=== PATIENT | male | born 1945 | race Caucasian/White ===

== ENCOUNTER 2016-10-28 23:12 | Inpatient (IN) ==
--- NOTE | 2016-10-29 02:02 | Internal Med History&Physical ---
Date of Encounter: 10/29/16 Time of Encounter: 03:00 Assessment and Plan (1) Hyperkalemia Current visit: Yes Status: Acute Patient is known to have ESRD and is on hemodialysis. Patient had serum potassium of 7.5 and was given Kayexalate, calcium gluconate, sodium bicarbonate at [facility]. Stat repeat serum potassium after his arrival was 6.9. We have given him calcium gluconate, sodium bicarbonate 100 meq, on Kayexalate. I discussed with director medical radiation control health physicist Dr Coelho, for urgent HD (2) Acute respiratory failure with hypoxia Current visit: Yes Status: Acute This could be secondary to pulmonary edema, as reported in the chest x-ray at [facility]. He was apparently told that he had pneumonia, in [facility]. But CXR done in this hospital did not report any pneumonia. Pt has leucocytosis - will consider CT chest. Pt has significantly elevated D-dime -- consider CT Angio chest, if OK with the director medical -- otherwise V/Q scan to exclude pulmonary embolism-- I have signed out the day team. (3) Leucocytosis Current visit: Yes Status: Acute CXR is negative. UA was abnormal - But pt was given antibiotics, prior to arrival here. consider ceftriaxone for possible UTI. Blood cultures were done in [facility] Qualifiers: Leukocytosis type: unspecified Qualified Code(s): D72.829 - Elevated white blood cell count, unspecified (4) CKD (chronic kidney disease) stage 5, GFR less than 15 ml/min Current visit: No Status: Chronic On HD Sat/sat/sat (5) Diabetes mellitus Current visit: No Status: Acute start sliding scale insulin Qualifiers: Diabetes mellitus type: type 2 Diabetes mellitus complication status: with kidney complications Diabetes mellitus complication detail: with nephropathy Diabetes mellitus assisted insulin use: without assisted use Qualified Code(s): E11.21 - Type 2 diabetes mellitus with diabetic nephropathy (6) Hypothyroidism Current visit: Yes Status: Chronic Continue Synthroid Qualifiers: Hypothyroidism type: unspecified Qualified Code(s): E03.9 - Hypothyroidism , unspecified (7) Hypertension Current visit: No Status: Chronic Continue home medications Qualifiers: Hypertension type: essential hypertension Qualified Code(s): I10 - Essential (primary) hypertension (8) D-dimer, elevated Current visit: Yes Status: Acute consider CT Angio chest, if OK with the director medical -- otherwise V/Q scan to exclude pulmonary embolism (9) Atelectasis of left lung Current visit: Yes Status: Acute Start incentive spirometer (10) Pleural effusion Current visit: Yes Status: Chronic Possibly chronic (11) UTI (urinary tract infection) Current visit: Yes Status: Acute UA was abnormal in [facility]. Antibiotics were given in [facility], prior to transfer Qualifiers: Urinary tract infection type: site unspecified Hematuria presence: without hematuria Qualified Code(s): N39.0 - Urinary tract infection, site not specified (12) DVT prophylaxis Current visit: Yes Status: Acute Heparin Internal Medicine - H&P: HPI Chief complaint: " I have pneumonia" Admitted From: Hospital to Hospital Transfer Plans for Post Hospital Care: Home History of present illness: Mr. Delong is a 71 year old male admitted to [facility] as a hospital to hospital transfer from [facility] in [place]. Pt has h/o ESRD on HD, COPD, diabetes, GERD, hyperlipidemia, hypertension, hypothyroidism, anxiety, depression, PTSD. Patient is not able to give clinical details well. He reports shortness of breath, which is worsening; cough with no significant expectoration, subjective fevers and chills. He denies chest pain. Denies urinary or bowel symptoms. He was evaluated in the [facility] in [place]. Patient was noted to have hyperkalemia with potassium of 7.5 and was given dextrose insulin, calcium gluconate, Kayexalate, Lasix. He was suspected to have pneumonia and was given ceftriaxone. He is transferred to [facility], per patient's request. I reviewed the labs from [facility]: WBC: 19.4; hemoglobin 13.4; hematocrit 39.7; platelets 204; serum sodium 136, potassium 7.5, BUN 55, creatinine 8.7, d-dimer 2046, INR 0.91, troponin 0.07, lactic acid 2.7, proBNP 5162. Past Med Surg Social Fam HX - Past Medical History Medical history: arthritis, COPD, diabetes, GERD, hyperlipidemia, hypertension, renal disease Psychiatric history: anxiety, depression, PTSD - Past Surgical History Surgical History: cancer surgery - Social History Smoking Status: Current every day smoker Packs per day: ONE Smokeless Tobacco Status: No Alcohol use: none Drug use: none - Family History Mother Living Status: Hx Family Cancer: Yes (breast) Father Adopted: [place]: TAYLOR Age: 65 Family Member Ethnicity: Non- Living Status: Age at : 65 Cause of : HEART ATTACK Hx Family Cardiac Disorders: Yes Hx Family Respiratory Disorders: No Hx Family Cancer: Yes Hx Family GI Disorders: No Hx Family Genitourinary Disorders: No Hx Family Endocrine Disorder: Yes Hx Family Musculoskeletal Disorders: No Hx Family Neuromuscular Disorders: No Hx Family Neurologic Disorders: No Hx Family HEENT Disorders: No Hx Family Autoimmune Disorders: No Hx Family Reproductive Disorders: No Hx Family Psychosocial Disorders: No Hx Family Medical Disorders: No Internal Medicine - H&P: Meds Acetaminophen [Tylenol] 650 mg PO QID 08/12/15 [History] Albuterol Sulfate [Albuterol Inhaler] 90 mcg IH Q4HR PRN 08/12/15 [History] Ammonium Lactate 1 appl TP DAILY 08/12/15 [History] Aspirin Enteric Coated [Aspirin EC] 81 mg PO DAILY 08/12/15 [History] Atorvastatin Calcium [Lipitor] 80 mg PO DAILY 08/12/15 [History] Bisacodyl [Dulcolax] 10 mg PO BID PRN 08/12/15 [History] ClonazePAM [Klonopin] 1 mg PO TID 08/12/15 [History] Desipramine [Norpramine] 50 mg PO BID 08/12/15 [History] Docusate [Colace] 100 mg PO BID PRN 08/12/15 [History] FluocinoNIDE 0.05% CRM [Lidex] 1 appl TP BID 08/12/15 [History] Fluticasone Propionate Nasal [Flonase] 1 spray NS BID 08/12/15 [History] Guaifenesin 400 mg PO TID 08/12/15 [History] HYDROcodone/Acet 5/325 mg [Pillager 5-325 mg] 5 - 325 mg PO QID PRN 08/12/15 [ History] Hydralazine HCl 20 mg PO TID 08/12/15 [History] Hydrocortisone [Proctosol-Hc] 2.5 appl RC DAILY 08/12/15 [History] Ketoconazole 2% CRM [Nizoral Cream] 1 appl TP DAILY 08/12/15 [History] Ketoconazole Shampoo [Nizoral Shampoo] 2 ml TP DAILY 08/12/15 [History] Levothyroxine Sodium [Synthroid] 100 mcg PO DAILY 08/12/15 [History] Loratadine [Claritin] 10 mg PO DAILY 08/12/15 [History] Metoprolol Succinate/Hctz [Dutoprol 25-12.5 mg Tablet] 75 mg PO DAILY 08/12/15 [ History] NIFEdipine [Afeditab Cr] 60 mg PO QPM 08/12/15 [History] Quetiapine Fumarate [Seroquel] 400 mg PO HS 08/12/15 [History] Sertraline HCl [Zoloft] 100 mg PO BID 08/12/15 [History] Terazosin [Hytrin] 4 mg PO HS 08/12/15 [History] Calcium Acetate [Phos-LO] 1,334 mg PO TIDWM #90 capsule 08/17/15 [Rx] CloNIDine HCl 0.1 mg PO BID #60 tablet 08/17/15 [Rx] Insulin Glargine [Lantus] 0 unit SQ PRN 09/27/15 [History] Clindamycin [Cleocin] 600 mg PO Q8HR #30 capsule 05/23/16 [Rx] Allergies Influenza Virus Vaccines Adverse Reaction (Verified 08/12/15 21:11) Rash Pneumococcal Vaccine Adverse Reaction (Verified 08/12/15 21:11) Rash Tetanus Vaccines and Toxoid [Tetanus Vaccines & Toxoid] Adverse Reaction ( Verified 08/12/15 21:11) Rash All Systems PM: A 10-system review of systems was performed and is negative for pertinent findings except as documented above in the HPI. - Constitutional Vitals: Temp Pulse Resp BP Pulse Ox 99.3 F 110 28 142/75 93 L 10/29/16 00:50 10/29/16 01:15 10/29/16 00:50 10/29/16 00:50 10/29/16 00:50 Exam: General: Not in acute distress at the time of my evaluation HEENT: Oral mucosa is moist. Neck: No obvious neck swellings Lungs: Bilateral basal crackles Cardiac: Regular rate and rhythm. No significant murmurs Abdomen: Soft, non tender. Bowel sounds present Genitourinary: Maxwell catheter present Neurological: Alert and oriented. No gross localizing deficits Psych: Not aggressive or agitated Extremities: leg edema present Skin: No generalized rash Internal Med - H&P Results - Labs CBC & Chem 7: 10/29/16 07:57 10/29/16 04:50 Labs: Laboratory Tests 10/29/16 10/29/16 10/29/16 01:01 02:03 04:50 Sodium 135 L Potassium 6.9 H* 6.9 H* Chloride 96 L Carbon Dioxide 21 BUN 58 H Creatinine 8.79 H Est GFR ( Amer) 7 L Est GFR (Non-Af Amer) 6 L BUN/Creatinine Ratio 7 Glucose 165 H POC Glucose 148 H Calculated Osmolality 300 Calcium 9.0 I reviewed the labs from [facility]: WBC: 19.4; hemoglobin 13.4; hematocrit 39.7; platelets 204; serum sodium 136, potassium 7.5, BUN 55, creatinine 8.7, d-dimer 2046, INR 0.91, troponin 0.07, lactic acid 2.7, proBNP 5162. - EKG Data EKG comments: Personally Reviewed the EKG from [facility] - sinus rhythm, no acute ST-T changes. 10/29/16 07:35
[2016-10-29 02:25] LABS: Potassium 6.9 mEq/L (3.5-4.5)
[2016-10-29] MEDS ORDERED: Calcium Gluconate 1,000 MG in D5% in Water 100 ML IVPB ONE (02:29)
[2016-10-29] MEDS ORDERED: Acetaminophen 325 MG TABLET PO PRN (03:03)
[2016-10-29] MEDS ORDERED: Naloxone 0.4 MG/ML INJ IVP PRN (03:03)
[2016-10-29] MEDS ORDERED: 0.9 % Sodium Chloride 250 ML IV PRN (04:43)
[2016-10-29] MEDS ORDERED: 0.9 % Sodium Chloride 1,000 ML PRIME SCH (04:45)
[2016-10-29] MEDS ORDERED: Lactulose Oral Soln 20 GM/30 ML UDC PO ONE (06:38)
[2016-10-29] MEDS ORDERED: *HR* Dextrose 50 % in Water (Syg) 50 ML SYRINGE IVP PRN (07:00)
[2016-10-29] MEDS ORDERED: D5% in Water 1,000 ML IV PRN (07:00)
[2016-10-29] MEDS ORDERED: Dextrose Gel 15 GM PO PRN ×2 (07:00)
[2016-10-29 08:09] LABS: Prothrombin Time 11.2 Seconds (9.4-12.1)
[2016-10-29] MEDS: Insulin LISPRO 300 UNITS/3 ML VIAL SQ SCH ×3 (08:10→16:43)
[2016-10-29 08:28] LABS: Basophils % 0.1 %; Hematocrit 38.5 % (37.5-50.1); Hemoglobin 12.5 g/dL (12.9-16.9); Immature Granulocytes % 1.2 % (0-4); Lymphocytes % 4.4 %; Mean Corpuscular HGB Conc 32.5 g/dL (31.6-35.5); Mean Corpuscular Hemoglobin 30.5 pg (28.0-33.3); Mean Corpuscular Volume 93.9 fL (83.0-100.0); Mean Platelet Volume 9.4 fL (9.4-12.4); Monocytes # 0.7 K/mcL (0.0-1.3); Monocytes % 3.1 %; Neutrophils # 20.2 K/mcL (1.6-8.9); Platelet Count 206 K/mcL (140-400); Segmented Neutrophils % 91.2 %
[2016-10-29 09:24] LABS: Hepatitis B Surface Antibody 0.34 mIU/mL; Hepatitis B Surface Antigen Nonreactive (Nonreactive)
[2016-10-29] MEDS ORDERED: Heparin 1,000 UNITS/500 mL NS 500 ML ONE (11:14)
[2016-10-29] MEDS ORDERED: 0.9 % Sodium Chloride 500 ML ONE (11:15)
[2016-10-29] MEDS ORDERED: *HR* Midazolam HCl 2 MG/2 ML VIAL IV PRN (12:20)
[2016-10-29] MEDS ORDERED: *HR* FentaNYL (PF) 100 MCG/2 ML VIAL IV PRN (12:20)
--- NOTE | 2016-10-29 12:20 | Pre-Sedation Evaluation ---
Pre-sedation evaluation - Pre-sedation checklist Date of procedure: 10/29/16 Procedure: fistulogram Recent Vitals: Last Vital Signs Temp 98.1 F 10/29/16 11:03 Pulse 103 10/29/16 11:55 Resp 20 10/29/16 11:03 BP 161/85 10/29/16 11:03 Pulse Ox 98 10/29/16 11:18 H&P (including ROS) documented in medical record: Yes Previous reaction to sedatives/anesthetics: No Dietary Status: NPO after Midnight Airway Assessment: Patient can open mouth completely, TMJ function normal, Micrognathia (under-bite, receding chin) absent, Neck with adequate range of motion Dentition: dentures removed ASA Classification *see protocol: CLASS II-Mild systemic disease Plan of Care: Pt appropriate candidate for procedure/moderate/conscious sedation , Risks/benefits of procedure/sedation discussed w/ patient/family, If not NPO; Risk of intake outweiged by necessity to perform procedure
--- NOTE | 2016-10-29 12:27 | Internal Med Progress Note ---
Date of Encounter: 10/29/16 Time of Encounter: 10:00 - Assessment and plan (1) Cellulitis of lower limb Current Visit: Yes Status: Acute Assessment and plan: Changed antibiotic to Zosyn and vancomycin, if venous Doppler lower extremities negative order compression stockings lower extremities. MRSA screening Qualifiers: Laterality: left Qualified Code(s): L03.116 - Cellulitis of left lower limb (2) Community acquired pneumonia Current Visit: Yes Status: Acute Assessment and plan: Patient had cellulitis in addition to pneumonia with his being on dialysis possible healthcare associated pneumonia will start patient on vancomycin and Zosyn Check sputum culture (3) D-dimer, elevated Current Visit: Yes Status: Acute Assessment and plan: Patient had bilateral calf tenderness and pain will check venous Doppler lower extremities continue DVT prophylaxis (4) Hyperkalemia Current Visit: Yes Status: Acute Assessment and plan: Patient received multiple doses of Kayexalate and bicarbonate D50 and insulin. Staff mentions patient had multiple bowel movement. Failed dialysisthrough his fistula, He is going to have fistulogram soon - Subjective Interval history: Patient is complaining of productive cough with loya phlegm for last 2 days associated with shortness of breath. Patient denies any chest pain. Patient complain of bilateral lower extremity pain and swelling for last 3 days. - Constitutional Vitals: Temp Pulse Resp BP Pulse Ox 98.1 F 103 20 161/85 98 10/29/16 11:03 10/29/16 11:55 10/29/16 11:03 10/29/16 11:03 10/29/16 11:18 General appearance: Present: A&O X 3, pleasant, no acute distress - Head Head exam: Present: atraumatic, normocephalic - Neck Neck exam general surgery: Present: supple, trachea midline. Absent: lymphadenopathy - Respiratory Respiratory exam: Present: decreased breath sounds, prolonged expiratory phase, rales. Absent: accessory muscle use, rhonchi, wheezes - Cardiovascular Cardiovascular exam: Present: RRR, +S1, +S2. Absent: diastolic murmur, gallop, rubs, systolic murmur - GI/Abdominal GI/Abdominal exam: Present: normal bowel sounds, soft, no peritoneal signs. Absent: distended, tenderness - Extremities Exam Extremities exam: Present: calf tenderness (Bilateral calf tenderness), pedal edema (+2 pitting edema bilateral), warm. Absent: cyanotic - Neurological Exam Neurological exam: Present: CN II-XII intact, oriented X3, no focal deficits. Absent: pronater drift, facial droop, speech deficit - Skin Skin exam: Present: dry (Erythema and warm skin left lower extremity ), intact Internal Medicine: Result - Labs CBC & Chem 7: 10/29/16 07:57 10/29/16 07:57 Labs: Short CBC 10/29/16 Range/Units 07:57 WBC 22.1 H (4.3-11.1) K/mcL Hgb 12.5 L (12.9-16.9) g/dL Hct 38.5 (37.5-50.1) % Plt Count 206 (140-400) K/mcL Neutrophils # 20.2 H (1.6-8.9) K/mcL BMP 10/29/16 10/29/16 10/29/16 02:03 04:50 07:57 Sodium 135 L Potassium 6.9 H* 6.9 H* 6.0 H Chloride 96 L Carbon Dioxide 21 BUN 58 H Creatinine 8.79 H Glucose 165 H Calcium 9.0 - ABG Interpretation ABG results: PT/INR, D-dimer PT 11.2 Seconds (9.4-12.1) 10/29/16 07:57 - Impressions Impressions Chest X-Ray 10/29/16 03:11 IMPRESSION: Pulmonary venous congestion with suggestion of mild interstitial edema. Chronic or less likely recurrent left pleural effusion. Adjacent left basilar airspace disease most likely due to compressive atelectasis. D/ / Ketan Camilo MD / Ketan Camilo MD Interpreting Provider: Ketan Camilo MD Consult Discharge Plan - Plan [facility]errals[facility]Primary Care Provider[facility] - (THIS PATIENT IS A HOME BASE [facility], WHICH THE [facility] COMES TO THE PATIENTS HOUSE AND SEES HIM.)
[2016-10-29] MEDS ORDERED: Vancomycin 1,500 MG in D5% in Water 250 ML IVPB ONE ×2 (13:00→19:00)
--- NOTE | 2016-10-29 14:03 | IR Procedure Note ---
Date of procedure: 10/29/16 Consent Obtained: Verbal consent, Written consent Timeout: Correct patient and procedure verified, Correct site verified, Time out performed, Skin prep completed Local anesthetic: Lidocaine 1% Indications: difficulty cannulating fistula Procedure Performed: fistulogram Site/Technique: L arm Results/Findings: no stenosis Estimated blood loss (cc): 1 Complications: None; Tolerated procedure well Post Procedure Treatment Plan: bedrest x 1 hour
[2016-10-29] MEDS ORDERED: 0.9 % Sodium Chloride 2,000 ML ONE (15:37)
[2016-10-29] MEDS ORDERED: *HR* Heparin 5,000 UNIT/ML VIAL ONE (15:37)
[2016-10-29] MEDS: Piperacillin/Tazobactam 3.375 GM in D5% in Water (Mini-Bag+) 100 ML IVPB SCH (16:42)
[2016-10-29] MEDS: *HR* Heparin 5,000 UNIT/ML VIAL SQ SCH (16:43)
--- NOTE | 2016-10-29 17:00 | Nephrology Consult Note ---
Date of Encounter: 10/29/16 Time of Encounter: 12:00 Assessment and Plan (1) Hyperkalemia Current Visit: Yes Status: Resolved Critically high potassium over weekend in a dialysis patinet potentially life threatening requiring urgent dialysis unfortunately delayed due to AV access issue. HD done via temporary HD catheter today with 2k bath once potassium noted at 5.1 after kayexalate with bowel movements Pt counselled on adherence to renal diet (2) End stage renal disease Current Visit: No Status: Acute HD for 3.5hrs today with 2k bath today Will reassess whether future sessions needed tomorrow (3) Dialysis AV fistula malfunction Current Visit: Yes Status: Acute s/p fistulogram today showing no stenosis but prominent bifurcation noted at venous outflow. Apprecate IR 's help Qualifiers: Encounter type: subsequent encounter Qualified Code(s): T82.590D - Other mechanical complication of surgically created arteriovenous fistula, subsequent encounter History of Present Illness - Reason for Consult Consult date: 10/29/16 end stage renal disease Requesting physician: Viviana Travis - History of Present Illness 71 y o male with PMH of COPD, DM, HTN and ESRD on HD in [place] transfer from [facility] overnight where he presented for SOB. He was noted to have potassium of 7.5 with 30g kayexalate, insulin and bicarbonate. Last HD was on saturday and he was due to HD this morning. I was called early this morning around 3am for this patient and I subsequently called HD nurse control clerk subassembly who presented within 2 hours to dialyze patient. Additional 30g of kayaxelate was given for BM. Unfortunately, AV access proven very difficult to cannuate and a call was placed to IR for STAT fistulogram. Fistulogram did not shows significant stenosis but temporray HD catheter placed for immediate dialysis use. Pt seen and examined before fistulogram and HD. He has had several bouts of BMs after a second dosing of 60g kayexalate with potassium down to 6. presesnt at bedside, No new complaints Past Med Surg Social Fam HX - Past Medical History Medical history: arthritis, COPD, diabetes, GERD, hyperlipidemia, hypertension, renal disease Psychiatric history: anxiety, depression, PTSD - Past Surgical History Surgical History: cancer surgery - Social History Smoking Status: Current every day smoker Packs per day: ONE Smokeless Tobacco Status: No Alcohol use: none Drug use: none - Family History Mother Living Status: Hx Family Cancer: Yes (breast) Father Adopted: [place]: TAYLOR Age: 65 Family Member Ethnicity: Non- Living Status: Age at : 65 Cause of : HEART ATTACK Hx Family Cardiac Disorders: Yes Hx Family Respiratory Disorders: No Hx Family Cancer: Yes Hx Family GI Disorders: No Hx Family Genitourinary Disorders: No Hx Family Endocrine Disorder: Yes Hx Family Musculoskeletal Disorders: No Hx Family Neuromuscular Disorders: No Hx Family Neurologic Disorders: No Hx Family HEENT Disorders: No Hx Family Autoimmune Disorders: No Hx Family Reproductive Disorders: No Hx Family Psychosocial Disorders: No Hx Family Medical Disorders: No Medications and Allergies Acetaminophen [Tylenol] 650 mg PO QID PRN 08/12/15 [History] Albuterol Sulfate [Albuterol Inhaler] 2 puff IH Q4HR PRN 08/12/15 [History] Ammonium Lactate 1 appl TP DAILY 08/12/15 [History] Aspirin Enteric Coated [Aspirin EC] 81 mg PO DAILY 08/12/15 [History] Bisacodyl [Dulcolax] 10 mg PO BID PRN 08/12/15 [History] ClonazePAM [Klonopin] 1 mg PO TID 08/12/15 [History] Desipramine [Norpramine] 50 mg PO BID 08/12/15 [History] FluocinoNIDE 0.05% CRM [Lidex] 1 appl TP BID 08/12/15 [History] Fluticasone Propionate Nasal [Flonase] 1 spray NS BID 08/12/15 [History] Guaifenesin 400 mg PO TID 08/12/15 [History] Hydralazine HCl 20 mg PO TID 08/12/15 [History] Ketoconazole 2% CRM [Nizoral Cream] 1 appl TP BID 08/12/15 [History] Ketoconazole Shampoo [Nizoral Shampoo] 1 appl TP DAILY 08/12/15 [History] Loratadine [Claritin] 10 mg PO Q48H 08/12/15 [History] NIFEdipine [Afeditab Cr] 60 mg PO QPM 08/12/15 [History] Quetiapine Fumarate [Seroquel] 400 mg PO HS 08/12/15 [History] Insulin Glargine [Lantus] 12 unit SQ DAILY 09/27/15 [History] Albuterol Neb [Proventil Neb] 2.5 mg IH QID PRN 10/30/16 [History] Atorvastatin [Lipitor] 40 mg PO HS 10/30/16 [History] Dextrose [Dex4 Glucose] 15 gm PO PRN PRN 10/30/16 [History] Furosemide [Lasix] 80 mg PO SUTUTHSA 10/30/16 [History] Hydrocortisone 2.5% CREAM [Cortaid] 1 appl TP BID 10/30/16 [History] Isosorbide DInitrate [Isosorbide Dinitrate] 20 mg PO DAILY 10/30/16 [History] Levothyroxine [Synthroid] 100 mcg PO DAILY 10/30/16 [History] Multivitamin [Multi-Day Vitamins] 1 each PO DAILY 10/30/16 [History] Polyethylene Glycol 3350 [MiraLAX] 17 gm PO DAILY 10/30/16 [History] Saline Nasal [place] [[place] Nasal [place]] 2 spray NS HS PRN 10/30/16 [History] Sevelamer [Renvela] 1,600 mg PO PRN PRN 10/30/16 [History] Sevelamer [Renvela] 4,000 mg PO TIDAC 10/30/16 [History] Sodium Bicarbonate 650 mg PO TID 10/30/16 [History] Terazosin HCl 4 mg PO HS 10/30/16 [History] Allergies Influenza Virus Vaccines Adverse Reaction (Verified 08/12/15 21:11) Rash Pneumococcal Vaccine Adverse Reaction (Verified 08/12/15 21:11) Rash Tetanus Vaccines and Toxoid [Tetanus Vaccines & Toxoid] Adverse Reaction ( Verified 08/12/15 21:11) Rash Review of Systems All Systems: reviewed and no additional remarkable complaints except as stated ( as noted in HPI otherwise negative) Exam - Vital Signs Vital signs: Initial Vital Signs Temp Pulse Resp BP Pulse Ox 99.3 F 114 28 142/75 93 L 10/29/16 00:50 10/29/16 00:50 10/29/16 00:50 10/29/16 00:50 10/29/16 00:50 Vital Signs - Last 8 Hours Temp Pulse Resp BP Pulse Ox 10/29/16 16:39 112 10/29/16 16:25 147/78 10/29/16 16:10 144/76 10/29/16 15:55 136/75 10/29/16 15:40 155/83 10/29/16 15:25 141/74 10/29/16 15:10 150/80 10/29/16 14:55 98.1 F 18 150/83 10/29/16 12:58 104 21 173/94 94 L 10/29/16 12:48 105 18 171/99 95 10/29/16 12:38 105 23 173/99 97 10/29/16 12:28 108 27 169/99 97 10/29/16 11:55 103 10/29/16 11:18 98 10/29/16 11:03 98.1 F 104 20 161/85 98 Intake and Output 10/29/16 10/29/16 10/29/16 07:59 15:59 23:59 Intake Total 110 / 110 700 / 700 0 / 0 Output Total 400 / 400 0 / 0 Balance 110 / 110 300 / 300 0 / 0 Intake: IV Fluids 110 / 110 100 / 100 Calcium Gluconate 1,000 110 / 110 MG In Dextrose 5% 100 ML @ 220 mls/hr IVPB ONCE ONE Rx#:[id number] Rocephin 1,000 MG In 100 / 100 Dextrose 5% (Minibag+) 100 ML 100 ML @ 200 mls/ hr IVPB Q24H SUKUMAR Rx#: [id number] Oral 0 / 0 0 / 0 Intake, Rinseback and 600 / 600 Flushes Output: Urine 0 / 0 Catheter 400 / 400 Other: Weight 104.3 kg Blood Glucose* 148 157 Hemodialysis Net Fluid 1029 1541 Removed (mL) Patient Weight 10/29/16 23:59 Weight 104.3 kg - General Appearance General appearance: chronically ill (NAD) EENT: ATNC, mucous membranes moist Neck: supple Additional Comments: good areation ant bilat with slightly decreased BS bases Cardiology: edema (trace LE edema bilat), normal S1, normal S2 - Dialysis Access Dialysis Vascular Access: Arteriovenous Fistula thrill: Yes bruit: Yes Gastrointestinal: no tenderness, no guarding Integumentary: warm and dry Neurologic: no focal deficit Musculoskeletal: no deformities Psychiatric: cooperative Results - Lab Results 10/31/16 09:50 10/31/16 09:50 Most recent lab results Calcium 9.0 mg/dL (8.6-10.8) 10/29/16 02:03 Consult Discharge Plan - Plan [facility]errals: [facility],PCP [Primary Care Provider] - (THIS PATIENT IS A HOME BASE [facility], WHICH THE [facility] COMES TO THE PATIENTS HOUSE AND SEES HIM.)
[2016-10-30] MEDS: *HR* Heparin 5,000 UNIT/ML VIAL SQ SCH ×4 (01:07→23:34)
[2016-10-30] MEDS: Piperacillin/Tazobactam 3.375 GM in D5% in Water (Mini-Bag+) 100 ML IVPB SCH ×2 (01:09→14:55)
[2016-10-30] MEDS: Insulin LISPRO 300 UNITS/3 ML VIAL SQ SCH ×3 (07:55→16:50)
[2016-10-30 08:25] LABS: Basophils % 0.2 %; Eosinophils # 0.1 K/mcL (0.0-0.6); Eosinophils % 0.7 %; Hematocrit 36.2 % (37.5-50.1); Hemoglobin 11.6 g/dL (12.9-16.9); Immature Granulocytes % 0.4 % (0-4); Lymphocytes # 1.7 K/mcL (0.6-4.6); Lymphocytes % 10.3 %; Mean Corpuscular Hemoglobin 30.4 pg (28.0-33.3); Mean Corpuscular Volume 94.8 fL (83.0-100.0); Mean Platelet Volume 9.1 fL (9.4-12.4); Monocytes % 6.1 %; Neutrophils # 13.4 K/mcL (1.6-8.9); Platelet Count 166 K/mcL (140-400); Red Blood Count 3.82 M/mcL (4.19-5.50); Red Cell Distribution Width 14.9 % (11.5-14.5); Segmented Neutrophils % 82.3 %
[2016-10-30 08:36] LABS: Calcium 9.1 mg/dL (8.6-10.8)
[2016-10-30 08:37] LABS: Potassium 3.7 mEq/L (3.5-4.5)
--- NOTE | 2016-10-30 09:02 | Internal Med Progress Note ---
Date of Encounter: 10/30/16 Time of Encounter: 09:01 - Assessment and plan (1) Acute respiratory failure with hypoxia Current Visit: Yes Status: Acute Assessment and plan: Likely related to volume overload related to end-stage renal disease. Improved with hemodialysis session. Continue supplemental oxygen as needed, wean down FiO2 as tolerated. (2) Cellulitis of lower limb Current Visit: Yes Status: Acute Assessment and plan: Left lower extremity cellulitis, noted to have erythema and warmth extending from the left foot up to proximal thigh. Continue IV Zosyn and vancomycin and monitor clinically. Venous Doppler of lower extremity preliminary report shows no evidence of DVT, follow up final report. Local wound care for left foot ulcer per outpatient podiatry recommendations. Follow blood and urine cultures from emergency room. Qualifiers: Laterality: left Qualified Code(s): L03.116 - Cellulitis of left lower limb (3) Dialysis AV fistula malfunction Current Visit: Yes Status: Acute Assessment and plan: Status post fistulogram which showed no stenosis but significant bifurcation. Nephrology to reattempt hemodialysis tomorrow via AV fistula. Qualifiers: Encounter type: subsequent encounter Qualified Code(s): T82.590D - Other mechanical complication of surgically created arteriovenous fistula, subsequent encounter (4) Hyperkalemia Current Visit: Yes Status: Resolved Assessment and plan: Improved with hemodialysis. (5) Hypothyroidism Current Visit: Yes Status: Chronic Assessment and plan: Resume levothyroxine. Qualifiers: Hypothyroidism type: acquired Qualified Code(s): E03.9 - Hypothyroidism, unspecified (6) Diabetes mellitus Current Visit: Yes Status: Chronic Assessment and plan: Accu-Chek blood glucose monitoring with sliding scale insulin. Qualifiers: Diabetes mellitus type: type 2 Diabetes mellitus complication status: with kidney complications Diabetes mellitus complication detail: with nephropathy Diabetes mellitus ad terminal makeup operator insulin use: without ad terminal makeup operator use Qualified Code(s): E11.21 - Type 2 diabetes mellitus with diabetic nephropathy (7) Dyslipidemia Current Visit: Yes Status: Chronic (8) End-stage renal disease needing dialysis Current Visit: Yes Status: Chronic Assessment and plan: Nephrology follow-up appreciated. Next Hemodialysis session tomorrow. Patient received right internal jugular temporary hemodialysis catheter yesterday, which will be removed if his AV fistula is accessible for dialysis. Continue multivitamins and phosphate binders. (9) Hypertension Current Visit: Yes Status: Chronic Qualifiers: Hypertension type: essential hypertension Qualified Code(s): I10 - Essential (primary) hypertension - Subjective Interval history: Reports no chest pain, shortness of breath, leg pain. No nausea or vomiting. He underwent hemodialysis yesterday via temporary dialysis catheters. Repeats over and over that he stayed here for too long and would like to go home. - Constitutional Vitals: Temp Pulse Resp BP Pulse Ox 98.1 F 109 12 133/89 95 10/30/16 07:55 10/30/16 08:42 10/30/16 07:55 10/30/16 07:55 10/30/16 07:55 General appearance: Present: A&O X 3, answers questions appropriately - Head Head exam: Present: atraumatic, normocephalic - Neck Neck exam general surgery: Present: supple, trachea midline. Absent: lymphadenopathy - Respiratory Respiratory exam: Present: CTAB. Absent: accessory muscle use, rales, rhonchi, wheezes - Cardiovascular Cardiovascular exam: Present: RRR, +S1, +S2, tachycardia. Absent: diastolic murmur, gallop, rubs, systolic murmur - GI/Abdominal GI/Abdominal exam: Present: normal bowel sounds, soft, no peritoneal signs. Absent: distended, tenderness - Extremities Exam Extremities exam: Present: full ROM, pedal edema (Bilateral chronic pedal edema with stasis dermatitis), warm, radial pulses palpable and symetrical. Absent: calf tenderness, cyanotic Additional comments: Left lower extremity with warmth, erythema extending from left leg to proximal thigh anteromedially. Nontender. Chronic induration related to chronic pedal edema and stasis dermatitis. - Neurological Exam Neurological exam: Present: CN II-XII intact, oriented X3. Absent: pronater drift, facial droop, speech deficit - Skin Skin exam: Present: dry, erythema, intact Internal Medicine: Result - Labs CBC & Chem 7: 10/30/16 08:18 10/30/16 08:18 Labs: Short CBC 10/30/16 Range/Units 08:18 WBC 16.3 H (4.3-11.1) K/mcL Hgb 11.6 L (12.9-16.9) g/dL Hct 36.2 L (37.5-50.1) % Plt Count 166 (140-400) K/mcL Neutrophils # 13.4 H (1.6-8.9) K/mcL BMP 10/29/16 10/30/16 14:30 08:18 Sodium 139 Potassium 5.1 H 3.7 D Chloride 93 L Carbon Dioxide 29 BUN 32 H D Creatinine 5.58 H Glucose 145 H Calcium 9.1 - ABG Interpretation ABG results: PT/INR, D-dimer PT 11.2 Seconds (9.4-12.1) 10/29/16 07:57 - Impressions Impressions AV Shunt Angiogram 10/29/16 00:00 IMPRESSION: Fistulogram demonstrates no significant stenosis at the arteriovenous anastomosis or in the venous outflow tract. No central venous stenosis. Of note, a prominent bifurcation is present in the venous outflow tract at the proximal/mid forearm, near the site of dialysis access. D/ / 10/29/2016 15:49:09 Marco Sotelo MD / kelly Interpreting Provider: Marco Sotelo MD Guidance Needle Placement Ultrasound 10/29/16 00:00 IMPRESSION: Fistulogram demonstrates no significant stenosis at the arteriovenous anastomosis or in the venous outflow tract. No central venous stenosis. Of note, a prominent bifurcation is present in the venous outflow tract at the proximal/mid forearm, near the site of dialysis access. D/ / 10/29/2016 15:49:09 Marco Sotelo MD / kelly Interpreting Provider: Marco Sotelo MD Guidance Needle Placement Ultrasound 10/29/16 00:00 IMPRESSION: Successful ultrasound and fluoroscopy guided non-tunneled right internal jugular dialysis catheter placement. D/ / Marco Sotelo MD / Marco Sotelo MD Interpreting Provider: Marco Sotelo MD Insertion Non-Tunneled Catheter 10/29/16 00:00 IMPRESSION: Successful ultrasound and fluoroscopy guided non-tunneled right internal jugular dialysis catheter placement. D/ / Marco Sotelo MD / Marco Sotelo MD Interpreting Provider: Marco Sotelo MD Consult Discharge Plan - Plan [facility]errals: [facility],PCP [Primary Care Provider] - (THIS PATIENT IS A HOME BASE [facility], WHICH THE [facility] COMES TO THE PATIENTS HOUSE AND SEES HIM.)
--- NOTE | 2016-10-30 10:23 | Nephrology Progress Note ---
<ShaheenBobbyTiffanie A - Last Filed: 10/30/16 15:13> Date of Encounter: 10/30/16 Time of Encounter: 10:30 - Assessment and Plan (1) End stage renal disease on dialysis Current Visit: Yes Status: Chronic Saturday hemodialysis at [facility]. Required hemodialysis yesterday for elevated potassium and volume overload. No urgent need for renal replacement therapy today. (2) Dialysis AV fistula malfunction Current Visit: Yes Status: Acute Fistulogram noted no stenosis, but prominent bifurcation. HD team will attempt to re-access patient's fistula for next treatment. Qualifiers: Encounter type: subsequent encounter Qualified Code(s): T82.590D - Other mechanical complication of surgically created arteriovenous fistula, subsequent encounter (3) Hyperkalemia Current Visit: Yes Status: Resolved Resolved. Critically high potassium over the weekend requiring urgent hemodialysis yesterday. Potassium 3.7 today. Continue to monitor closely. Subjective Interval history: Patient seen and examined at the bedside. He has no complaints or concerns at this time. Hemodialysis performed yesterday with 3000 mL of fluid removal. Objective - Vital Signs Vital signs: Vital Signs Temp Pulse Resp BP Pulse Ox 10/30/16 08:42 109 10/30/16 07:55 98.1 F 109 12 133/89 95 10/30/16 07:00 111 10/30/16 04:07 99.0 F 100 23 160/80 93 L 10/30/16 01:00 97.6 F 103 20 125/53 92 L 10/29/16 18:51 99.6 F 120 20 155/73 90 L 10/29/16 18:30 98.1 F 16 144/71 10/29/16 18:25 135/52 10/29/16 18:10 138/74 10/29/16 17:55 116/52 10/29/16 17:40 114/61 10/29/16 17:25 111/56 10/29/16 17:10 117/59 10/29/16 16:55 127/69 10/29/16 16:40 140/77 10/29/16 16:39 112 10/29/16 16:25 147/78 10/29/16 16:10 144/76 10/29/16 15:55 136/75 10/29/16 15:40 155/83 10/29/16 15:25 141/74 10/29/16 15:10 150/80 10/29/16 14:55 98.1 F 18 150/83 10/29/16 12:58 104 21 173/94 94 L 10/29/16 12:48 105 18 171/99 95 10/29/16 12:38 105 23 173/99 97 10/29/16 12:28 108 27 169/99 97 10/29/16 11:55 103 10/29/16 11:18 98 10/29/16 11:03 98.1 F 104 20 161/85 98 Intake and Output 10/29/16 10/30/16 10/30/16 23:59 07:59 15:59 Intake Total 590 / 590 500 / 500 180 / 180 Output Total 3975 / 3975 250 / 250 Balance -3385 / -3385 250 / 250 180 / 180 Intake: IV Fluids 100 / 100 Zosyn 3.375 GM In 100 / 100 Dextrose 5% (Minibag+) 100 ML 100 ML @ 25 mls/hr IVPB Q12H [facility] Rx#: [id number] Oral 590 / 590 400 / 400 180 / 180 Output: Urine 0 / 0 Total Dialysis Output 3600 / 3600 Catheter 375 / 375 250 / 250 Other: Meal Dinner Breakfast Percent of Meal Consumed 85% 0% Weight 102.6 kg Blood Glucose* 163 133 Hemodialysis Net Fluid 3000 Removed (mL) Patient Weight 10/30/16 23:59 Weight 102.6 kg - General Appearance Exam: General: Patient is alert and in no acute distress HEENT: Normocephalic atraumatic, pupils are equal round and reactive to light and accommodation, tympanic membrane is intact, nares is patent, mucous membranes moist, throat is not injected, no JVD, trachea is midline Cardiovascular: Regular rate and rhythm without murmur Respiratory: Lungs are clear to auscultation bilaterally, no wheezing, rhonchi, rales Abdomen: Soft, nontender, nondistended, positive bowel sounds in all 4 quadrants Extremities: Warm, dry, bilateral lower extremity chronic venous stasis changes , chronic induration noted Neuro: A&Ox3, speech is appropriate, cranial nerves II through XII are normal as tested - Lab 10/30/16 08:18 10/30/16 08:18 Most recent lab results Calcium 9.1 mg/dL (8.6-10.8) 10/30/16 08:18 Consult Discharge Plan - Plan Referrals: [facility],PCP [Primary Care Provider] - (THIS PATIENT IS A HOME BASE [facility], WHICH THE [facility] COMES TO THE PATIENTS HOUSE AND SEES HIM.) <Lurdes Pfeiffer - Last Filed: 10/31/16 11:38> - Assessment and Plan (1) Hyperkalemia Current Visit: Yes Status: Resolved (2) End stage renal disease Current Visit: No Status: Acute (3) Dialysis AV fistula malfunction Current Visit: Yes Status: Acute Qualifiers: Encounter type: subsequent encounter Qualified Code(s): T82.590D - Other mechanical complication of surgically created arteriovenous fistula, subsequent encounter Objective - Vital Signs Vital signs: Vital Signs Temp Pulse Resp BP Pulse Ox 10/31/16 08:43 98.3 F 80 16 115/51 94 L 10/31/16 03:57 98.3 F 94 18 103/78 93 L 10/30/16 23:39 98.6 F 93 20 91/51 95 10/30/16 19:38 98.1 F 95 22 132/75 98 10/30/16 16:07 98.0 F 96 16 118/61 95 10/30/16 15:00 85 Intake and Output 10/30/16 10/31/16 10/31/16 23:59 07:59 15:59 Intake Total 620 / 620 240 / 240 Output Total 0 / 0 Balance 620 / 620 240 / 240 Intake: IV Fluids 100 / 100 Zosyn 3.375 GM In 100 / 100 Dextrose 5% (Minibag+) 100 ML 100 ML @ 25 mls/hr IVPB Q12H [facility] Rx#: [id number] Oral 520 / 520 240 / 240 Output: Urine 0 / 0 Other: Meal Dinner Breakfast Percent of Meal Consumed 5% 0% Stool Size Large Stool Consistency loose Stool Color Brown Weight 101.7 kg Blood Glucose* 158 134 Patient Weight 10/31/16 23:59 Weight 101.7 kg - Lab 10/31/16 09:50 10/31/16 09:50 Most recent lab results Calcium 8.6 mg/dL (8.6-10.8) 10/31/16 09:50 - Attending Attestation I examined this patient and my medical decision-making was reviewed with the VP CLINICAL/PA/Advanced Practice Nurse/Resident Physician. I agree with the documented findings, disposition and treatment plan as described except to the extent set forth below.
[2016-10-30] MEDS: Metoprolol XL (24 HR) Succ 50 MG TAB.ER.24H PO SCH (11:18)
[2016-10-30] MEDS: clonazePAM 1 MG TABLET PO SCH ×3 (11:19→20:46)
[2016-10-30] MEDS: cloNIDine HCl 0.1 MG TABLET PO SCH ×2 (11:19→20:46)
[2016-10-30] MEDS: Aspirin Enteric Coated 81 MG Tablet PO SCH (11:19)
[2016-10-30] MEDS: hydroCHLOROthiazide 25 MG TABLET PO SCH (11:19)
[2016-10-30] MEDS: hydrALAZINE 10 MG TABLET PO SCH ×3 (11:19→20:46)
[2016-10-30] MEDS: Calcium Acetate 667 MG CAPSULE PO SCH ×2 (11:22→16:53)
[2016-10-30] MEDS ORDERED: Vancomycin 1,500 MG in D5% in Water 250 ML IVPB ONE (23:00)
[2016-10-31] MEDS: Piperacillin/Tazobactam 3.375 GM in D5% in Water (Mini-Bag+) 100 ML IVPB SCH ×2 (01:29→16:21)
[2016-10-31 04:27] LABS: Basophils % 0.2 %; Eosinophils # 0.2 K/mcL (0.0-0.6); Hematocrit 32.6 % (37.5-50.1); Hemoglobin 10.4 g/dL (12.9-16.9); Immature Granulocytes % 0.5 % (0-4); Lymphocytes # 1.9 K/mcL (0.6-4.6); Lymphocytes % 19.5 %; Mean Corpuscular HGB Conc 31.9 g/dL (31.6-35.5); Mean Corpuscular Hemoglobin 30.1 pg (28.0-33.3); Mean Corpuscular Volume 94.5 fL (83.0-100.0); Mean Platelet Volume 9.4 fL (9.4-12.4); Monocytes # 0.7 K/mcL (0.0-1.3); Monocytes % 6.9 %; Neutrophils # 6.7 K/mcL (1.6-8.9); Platelet Count 153 K/mcL (140-400); Red Blood Count 3.45 M/mcL (4.19-5.50); Red Cell Distribution Width 14.5 % (11.5-14.5); Segmented Neutrophils % 70.9 %
[2016-10-31] MEDS: Insulin LISPRO 300 UNITS/3 ML VIAL SQ SCH ×3 (08:24→16:11)
[2016-10-31] MEDS: *HR* Heparin 5,000 UNIT/ML VIAL SQ SCH ×2 (08:34→16:05)
[2016-10-31] MEDS: Aspirin Enteric Coated 81 MG Tablet PO SCH (08:35)
[2016-10-31] MEDS: Calcium Acetate 667 MG CAPSULE PO SCH ×3 (08:35→16:19)
[2016-10-31] MEDS: clonazePAM 1 MG TABLET PO SCH ×2 (08:35→16:19)
[2016-10-31] MEDS ORDERED: 0.9 % Sodium Chloride 250 ML IV PRN (09:16)
[2016-10-31 10:03] LABS: Hematocrit 32.8 % (37.5-50.1); Hemoglobin 10.4 g/dL (12.9-16.9); Immature Platelets 2.7 % (1.1-6.1); Mean Corpuscular HGB Conc 31.7 g/dL (31.6-35.5); Mean Corpuscular Hemoglobin 30.1 pg (28.0-33.3); Mean Corpuscular Volume 94.8 fL (83.0-100.0); Mean Platelet Volume 9.4 fL (9.4-12.4); Red Blood Count 3.46 M/mcL (4.19-5.50); Red Cell Distribution Width 14.5 % (11.5-14.5)
[2016-10-31 10:14] LABS: Calcium 8.6 mg/dL (8.6-10.8); Potassium 3.7 mEq/L (3.5-4.5)
--- NOTE | 2016-10-31 11:32 | Nephrology Progress Note ---
<Tiffanie Jamison Vicky - Last Filed: 10/31/16 14:40> Date of Encounter: 10/31/16 Time of Encounter: 11:32 - Assessment and Plan (1) End stage renal disease on dialysis Status: Chronic Saturday hemodialysis at [facility]. Required hemodialysis on admission for elevated potassium and volume overload. Scheduled for hemodialysis today. (2) Dialysis AV fistula malfunction Status: Acute Fistulogram noted no stenosis, but prominent bifurcation. HD team will attempt to re-access patient's fistula for next treatment today. Qualifiers: Encounter type: subsequent encounter Qualified Code(s): T82.590D - Other mechanical complication of surgically created arteriovenous fistula, subsequent encounter (3) Hyperkalemia Status: Resolved Resolved. Critically high potassium over the weekend requiring urgent hemodialysis yesterday. Potassium 3.7 today. Continue to monitor closely. Subjective Interval history: Patient seen and examined at the bedside. He has no complaints or concerns at this time. Hemodialysis scheduled for today. Objective - Vital Signs Vital signs: Vital Signs Temp Pulse Resp BP Pulse Ox 10/31/16 08:43 98.3 F 80 16 115/51 94 L 10/31/16 03:57 98.3 F 94 18 103/78 93 L 10/30/16 23:39 98.6 F 93 20 91/51 95 10/30/16 19:38 98.1 F 95 22 132/75 98 10/30/16 16:07 98.0 F 96 16 118/61 95 10/30/16 15:00 85 Intake and Output 10/30/16 10/31/16 10/31/16 23:59 07:59 15:59 Intake Total 620 / 620 240 / 240 Output Total 0 / 0 Balance 620 / 620 240 / 240 Intake: IV Fluids 100 / 100 Zosyn 3.375 GM In 100 / 100 Dextrose 5% (Minibag+) 100 ML 100 ML @ 25 mls/hr IVPB Q12H [facility] Rx#: [id number] Oral 520 / 520 240 / 240 Output: Urine 0 / 0 Other: Meal Dinner Breakfast Percent of Meal Consumed 5% 0% Stool Size Large Stool Consistency loose Stool Color Brown Weight 101.7 kg Blood Glucose* 158 134 Patient Weight 10/31/16 23:59 Weight 101.7 kg - General Appearance Exam: General: Patient is alert and in no acute distress HEENT: Normocephalic atraumatic, pupils are equal round and reactive to light and accommodation, tympanic membrane is intact, nares is patent, mucous membranes moist, throat is not injected, no JVD, trachea is midline Cardiovascular: Regular rate and rhythm without murmur Respiratory: Lungs are clear to auscultation bilaterally, no wheezing, rhonchi, rales Abdomen: Soft, nontender, nondistended, positive bowel sounds in all 4 quadrants Extremities: Warm, dry, bilateral lower extremity chronic venous stasis changes noted Neuro: A&Ox3, speech is appropriate, cranial nerves II through XII are normal as tested - Lab 10/31/16 09:50 10/31/16 09:50 Most recent lab results Calcium 8.6 mg/dL (8.6-10.8) 10/31/16 09:50 Consult Discharge Plan - Plan Instructions: Amoxicillin/Clavulanate Potassium (By mouth) Additional Instructions: F/up for HD 3 times/week- MWF Referrals: [facility],PCP [Primary Care Provider] - (THIS PATIENT IS A HOME BASE [facility], WHICH THE [facility] COMES TO THE PATIENTS HOUSE AND SEES HIM.) Prescriptions: Amoxicillin/Clavulanate [Augmentin] 500 mg PO DAILY #10 tablet <Lurdes Pfeiffer - Last Filed: 11/12/16 00:06> - Assessment and Plan (1) Hyperkalemia Status: Resolved (2) End stage renal disease Status: Acute (3) Dialysis AV fistula malfunction Status: Resolved Qualifiers: Encounter type: subsequent encounter Qualified Code(s): T82.590D - Other mechanical complication of surgically created arteriovenous fistula, subsequent encounter Objective - Lab 10/31/16 09:50 10/31/16 09:50 Most recent lab results Calcium 8.6 mg/dL (8.6-10.8) 10/31/16 09:50 - Attending Attestation I examined this patient and my medical decision-making was reviewed with the CHEMICAL OPERATIONS SPECIALIST/PA/Advanced Practice Nurse/Resident Physician. I agree with the documented findings, disposition and treatment plan as described except to the extent set forth below. Pt seen and examined with HD via AV access. Will discontinue temp catheter afterwards. ok to discharge from renal standpoint. Potassium stable.
[2016-10-31] MEDS ORDERED: *HR* Heparin 5,000 UNIT/ML VIAL ONE (11:48)
[2016-10-31] MEDS ORDERED: 0.9 % Sodium Chloride 2,000 ML ONE (11:49)
[2016-10-31 15:34] VITALS: BP 116/69
[2016-10-31] MEDS: hydrALAZINE 10 MG TABLET PO SCH ×2 (15:58→16:19)
[2016-10-31] MEDS: cloNIDine HCl 0.1 MG TABLET PO SCH (15:59)
[2016-10-31] MEDS: hydroCHLOROthiazide 25 MG TABLET PO SCH (16:18)
[2016-10-31] MEDS: Metoprolol XL (24 HR) Succ 50 MG TAB.ER.24H PO SCH (16:19)
--- NOTE | 2016-10-31 16:42 | Discharge Summary ---
Date of Encounter: 10/31/16 Time of Encounter: 16:34 - Discharge Diagnosis (1) Acute respiratory failure with hypoxia Priority: Primary Status: Resolved (2) Cellulitis of lower limb Priority: Primary Status: Acute Qualifiers: Laterality: left Qualified Code(s): L03.116 - Cellulitis of left lower limb (3) Dialysis AV fistula malfunction Priority: Primary Status: Resolved Qualifiers: Encounter type: subsequent encounter Qualified Code(s): T82.590D - Other mechanical complication of surgically created arteriovenous fistula, subsequent encounter (4) Hyperkalemia Priority: Primary Status: Resolved (5) Hypothyroidism Priority: Secondary Status: Chronic Qualifiers: Hypothyroidism type: acquired Qualified Code(s): E03.9 - Hypothyroidism, unspecified (6) Diabetes mellitus Priority: Secondary Status: Chronic Qualifiers: Diabetes mellitus type: type 2 Diabetes mellitus complication status: with kidney complications Diabetes mellitus complication detail: with nephropathy Diabetes mellitus residential insulin use: without intermediate teacher use Qualified Code(s): E11.21 - Type 2 diabetes mellitus with diabetic nephropathy (7) Dyslipidemia Priority: Secondary Status: Chronic (8) End-stage renal disease needing dialysis Priority: Secondary Status: Chronic (9) Hypertension Priority: Secondary Status: Chronic Qualifiers: Hypertension type: essential hypertension Qualified Code(s): I10 - Essential (primary) hypertension - Discharge Medications Prescriptions: Amoxicillin/Clavulanate [Augmentin] 500 mg PO DAILY #10 tablet Home Medications: Acetaminophen [Tylenol] 650 mg PO QID PRN 08/12/15 [History] Albuterol Sulfate [Albuterol Inhaler] 2 puff IH Q4HR PRN 08/12/15 [History] Ammonium Lactate 1 appl TP DAILY 08/12/15 [History] Aspirin Enteric Coated [Aspirin EC] 81 mg PO DAILY 08/12/15 [History] Bisacodyl [Dulcolax] 10 mg PO BID PRN 08/12/15 [History] ClonazePAM [Klonopin] 1 mg PO TID 08/12/15 [History] Desipramine [Norpramine] 50 mg PO BID 08/12/15 [History] FluocinoNIDE 0.05% CRM [Lidex] 1 appl TP BID 08/12/15 [History] Fluticasone Propionate Nasal [Flonase] 1 spray NS BID 08/12/15 [History] Guaifenesin 400 mg PO TID 08/12/15 [History] Hydralazine HCl 20 mg PO TID 08/12/15 [History] Ketoconazole 2% CRM [Nizoral Cream] 1 appl TP BID 08/12/15 [History] Ketoconazole Shampoo [Nizoral Shampoo] 1 appl TP DAILY 08/12/15 [History] Loratadine [Claritin] 10 mg PO Q48H 08/12/15 [History] NIFEdipine [Afeditab Cr] 60 mg PO QPM 08/12/15 [History] Quetiapine Fumarate [Seroquel] 400 mg PO HS 08/12/15 [History] Insulin Glargine [Lantus] 12 unit SQ DAILY 09/27/15 [History] Albuterol Neb [Proventil Neb] 2.5 mg IH QID PRN 10/30/16 [History] Atorvastatin [Lipitor] 40 mg PO HS 10/30/16 [History] Dextrose [Dex4 Glucose] 15 gm PO PRN PRN 10/30/16 [History] Furosemide [Lasix] 80 mg PO SUTUTHSA 10/30/16 [History] Hydrocortisone 2.5% CREAM [Cortaid] 1 appl TP BID 10/30/16 [History] Isosorbide DInitrate [Isosorbide Dinitrate] 20 mg PO DAILY 10/30/16 [History] Levothyroxine [Synthroid] 100 mcg PO DAILY 10/30/16 [History] Multivitamin [Multi-Day Vitamins] 1 each PO DAILY 10/30/16 [History] Polyethylene Glycol 3350 [MiraLAX] 17 gm PO DAILY 10/30/16 [History] Saline Nasal [place] [Leake Nasal [place]] 2 spray NS HS PRN 10/30/16 [History] Sevelamer [Renvela] 1,600 mg PO PRN PRN 10/30/16 [History] Sevelamer [Renvela] 4,000 mg PO TIDAC 10/30/16 [History] Sodium Bicarbonate 650 mg PO TID 10/30/16 [History] Terazosin HCl 4 mg PO HS 10/30/16 [History] Amoxicillin/Clavulanate [Augmentin] 500 mg PO DAILY #10 tablet 10/31/16 [Rx] Calcium Acetate [Phos-LO] 1,334 mg PO TIDWM capsule 10/31/16 [Rx] CloNIDine HCl 0.1 mg PO BID tablet 10/31/16 [Rx] Hydrochlorothiazide 37.5 mg PO DAILY tablet 10/31/16 [Rx] Levothyroxine [Synthroid] 137 mcg PO DAILY 30 Days 10/31/16 [Rx] Metoprolol XL (24 HR) Succ [Toprol Xl] 75 mg PO DAILY tab.er.24h 10/31/16 [Rx] Sertraline [Zoloft] 100 mg PO BID tablet 10/31/16 [Rx] Terazosin [Hytrin] 4 mg PO HS capsule 10/31/16 [Rx] Allergies/Adverse Reactions: Allergies Influenza Virus Vaccines Adverse Reaction (Verified 08/12/15 21:11) Rash Pneumococcal Vaccine Adverse Reaction (Verified 08/12/15 21:11) Rash Tetanus Vaccines and Toxoid [Tetanus Vaccines & Toxoid] Adverse Reaction ( Verified 08/12/15 21:11) Rash Procedures/tests Complete & Pending: Procedures Performed prior 72 hours Category Date Time Status IR angio arteriovenous shunt [IR] Routine IR 10/29/16 Completed IR cvc insert >=5 years [IR] Routine IR 10/29/16 Completed IR us guide needle place [IR] Routine IR 10/29/16 Completed IR us guide needle place [IR] Routine IR 10/29/16 Completed EV venous imaging LE BI Routine Y 10/30/16 12:21 Completed Date of admission: 10/29/16 03:03 Primary care physician: [facility]CP [facility] Consults: 10/29/16 01:49 Consult to Restaurant Associate [CONS] Routine Reason for SW Consult: DISCHAGE PLANNING 10/29/16 03:09 Consult to Nephrology [CONS] Stat Consulting Provider: Kidney Spcl[facility] Delia ROBERTS/JEAN Reason for Consult: ESRD; Hyperkalemia Call Completed: No 10/29/16 04:45 Consult to Dialysis [CONS] ONCE 10/29/16 05:51 Consult to Interventional Radiology [CONS] Stat Consulting Provider: Radiology Interventional Cols Reason for Consult: Fistulagram needed STAT. K+ 6.9 Time Notified: 05:54 Call Completed: Yes 10/31/16 09:30 Consult to Dialysis [CONS] ONCE Discharging clinician: Ayse Jimenes Anticipated date of discharge: 10/31/16 - Patient Status Disposition: Home, Self-Care Condition: Good Functional capacity at discharge: independent ambulation Overall status at discharge: patient is back to baseline - Discharge Instructions Instructions: Amoxicillin/Clavulanate Potassium (By mouth) Follow Up With: [facility],PCP [Primary Care Provider] - (THIS PATIENT IS A HOME BASE [facility], WHICH THE [facility] COMES TO THE PATIENTS HOUSE AND SEES HIM.) Additional Instructions: F/up for HD 3 times/week- MWF - Diet and Activity Activity: resume usual activities as tolerated Diet: diabetic diet, other (renal) Hospital course: Mr. Delong is a 71 year old male with several medical problems, initially had severe hyperkalemia and acute hypoxic respiratory failure due to missed hemodialysis. Nephrology was consulted for emergent hemodialysis. Patient is noted to have left arm AV fistula, which could not be accessed for dialysis and he received them pretty hemodialysis catheter in right internal jugular vein. His serum potassium and respiratory status improved with hemodialysis and he no longer required supplemental oxygen. Patient had no respiratory complaints like cough, fever, chest pain. He was noted to have leukocytosis at the time of admission along with the possibility of pneumonia on chest x-ray. He also had clinical evidence of cellulitis and left leg. He was subsequently started on broad-spectrum IV antibiotics-IV vancomycin, Zosyn and Levaquin. Venous Doppler of left lower extremity showed no evidence of DVT. His cellulitis clinically improved significantly by day 3. His medically stable for discharge on oral antibiotics at this time. Blood and urine cultures sent from the emergency room but not reported back as positive. Patient received regular hemodialysis sessions while in the hospital. He underwent AV fistulogram, that showed no thrombosis but significant bifurcation. His fistula was able to be accessed on day 2 and currently, his temporary hemodialysis catheter is being removed at the time of discharge. - Time Spent with Patient Total time spent providing and/or coordinating discharge services: Greater than 30 minutes (50 min) - Constitutional Vitals: Temp Pulse Resp BP Pulse Ox 98.4 F 86 18 116/69 93 L 10/31/16 15:29 10/31/16 15:29 10/31/16 15:29 10/31/16 15:29 10/31/16 15:29 General appearance: Present: A&O X 3, answers questions appropriately - Respiratory Respiratory exam: Present: CTAB. Absent: accessory muscle use, rales, rhonchi, wheezes - Cardiovascular Cardiovascular exam: Present: RRR, +S1, +S2. Absent: diastolic murmur, gallop, rubs, systolic murmur - Extremities Exam Extremities exam: Present: normal inspection (improved erythema and warmth over left leg), pedal edema (much improved pedal edema), warm, radial pulses palpable and symetrical. Absent: calf tenderness, cyanotic
--- NOTE | 2016-10-31 17:19 | Venous Imaging Report ---
LE Venous Duplex Patient Name:Clark Delong Order Number:[id number] Procedure Date:10/30/2016 Date:1945ge:71 yrs Gender:Male Height: cm / inWeight:102.51 kg / 226.00 lb Location:[facility] Room #: 2N03 [id number] Engineer:Lili Montes RVT Referring MD:Elyssa Lawler MD robotic welding operator:[facility] Reading MD:Fidel Arenas MD Primary Indications:possible DVT Secondary Indications: Risk Factors Yes/No Hx of DVT No Hx of Chemotherapy No Anticoagulants No Impressions: Bilateral lower extremity: normal superficial and deep exam. Findings Venous Duplex Results: Right: Venous imaging of the lower extremity reveals full patency and normal vessel compressibility of the right distal iliac, right common femoral, right superficial femoral, right popliteal, right posterior tibial and right great saphenous. Doppler signals in the evaluated veins were normal. Left: Venous imaging of the lower extremity reveals full patency and normal vessel compressibility of the left distal iliac, left common femoral, left superficial femoral, left popliteal, left posterior tibial, left peroneal, left great saphenous and left lesser saphenous. Doppler signals in the evaluated veins were normal. Prior Study: No prior study available for comparison. Lower Extremity Venous Duplex Side Vein Compress Spontaneous Flow Augment Diameter (cm) Depth (cm) Right Distal Iliac Normal Yes Phasic Yes Right Common Femoral Normal Yes Phasic Yes Right Superficial Femoral Normal Yes Phasic Yes Right Popliteal Normal Yes Phasic Yes Right Posterior Tibial Normal Yes Phasic Yes Right Great Saphenous Normal Yes Phasic Yes Left Distal Iliac Normal Yes Phasic Yes Left Common Femoral Normal Yes Phasic Yes Left Superficial Femoral Normal Yes Phasic Yes Left Popliteal Normal Yes Phasic Yes Left Posterior Tibial Normal Yes Phasic Yes Left Peroneal Normal Yes Phasic Yes Left Great Saphenous Normal Yes Phasic Yes Left Lesser Saphenous Normal Yes Phasic Yes Updated by Fidel Arenas MD on 10/31/2016 5:14:57 PM electronically signed on 10/31/2016 5:15:16 PM with status of Final
[2016-10-31] MEDS ORDERED: Aminoglycoside Consult 1 EACH MC ONE (17:58)
== END 2016-10-31 17:59 | disposition home or self-care (01) | DRG 189 ==
LOC: 2NNU → SUATTDRO 10-29 03:03
PROVIDERS: ADMIT Family Medicine; ATTEND Internal Medicine